=== PATIENT | male | born 1975 ===

== ENCOUNTER 2017-03-04 14:59 | Observation (INO) | payer OTHER ==
[2017-03-04 15:28] VITALS: TEMP 97.8; BMI 25.8
--- NOTE | 2017-03-04 16:28 | ED PDOC ---
Arrival/HPI - General Chief Complaint: Alcohol Ingestion Time Seen by Provider: 03/04/17 15:07 Historian: Patient - History of Present Illness Narrative History of Present Illness (Text): 03/04/17 16:00 Bear Hanley is a 42 year old male, whose past medical history includes ETOH abuse, who was brought into emergency department intoxicated. Patient admits to heavy alcohol use today. Patient denies suicidal ideation, homicidal ideation, physical symptoms, or any other complaints at this time. Time/Duration: Prior to Arrival Symptom Onset: Gradual Symptom Course: Unchanged Activities at Onset: Light Context: Home Past Medical History - Provider Review Nursing Documentation Reviewed: Yes - Past History Past History: No Previous - Infectious Disease Hx of Infectious Diseases: None - Tetanus Immunization Tetanus Immunization: Unknown - Past Medical History Past Medical History: No Previous - Cardiac Hx Hypertension: Yes - Psychiatric Hx Depression: No Hx Emotional Abuse: No Hx Physical Abuse: No Hx Substance Use: No - Past Surgical History Past Surgical History: No Previous - Anesthesia Hx Anesthesia: No - Suicidal Assessment Feels Threatened In Home Enviroment: No Family/Social History - Physician Review Nursing Documentation Reviewed: Yes Family/Social History: No Known Family HX Smoking Status: Unknown If Ever Smoked Hx Alcohol Use: Yes Hx Substance Use: No Hx Substance Use Treatment: No Allergies/Home Meds Allergies/Adverse Reactions: Allergies No Known Allergies Allergy (Verified 03/04/17 15:42) Home Medications: Home Meds Medication Instructions Recorded Confirmed No Known Home Med 02/10/13 03/04/17 Review of Systems - Physician Review All systems were reviewed & negative as marked: Yes - Review of Systems Constitutional: Other (Intoxicated) Eyes: absent: Vision Changes ENT: absent: Hearing Changes Respiratory: absent: SOB, Cough Cardiovascular: absent: Chest Pain Gastrointestinal: absent: Abdominal Pain Genitourinary Male: absent: Dysuria Musculoskeletal: absent: Arthralgias Skin: absent: Rash Neurological: absent: Headache Endocrine: absent: Diaphoresis Hemo/Lymphatic: absent: Adenopathy Psychiatric: absent: Suicidal Ideation Physical Exam Vital Signs Reviewed: Yes Vital Signs Temp Pulse Resp BP Pulse Ox 03/04/17 19:28 98 H 16 135/78 100 03/04/17 15:23 97.8 F 108 H 22 145/93 H 96 Temperature: Afebrile Blood Pressure: Hypertensive Pulse: Tachycardic (mild) Respiratory Rate: Normal Pain Distress: None - Systems Exam Head: Present: Atraumatic, Normocephalic Pupils: Present: PERRL Conjunctiva: Present: Normal Mouth: Present: Moist Mucous Membranes Pharnyx: Present: Normal. No: ERYTHEMA, EXUDATE Neck: Present: Normal Range of Motion Respiratory/Chest: Present: Clear to Auscultation, Good Air Exchange. No: Respiratory Distress, Accessory Muscle Use Cardiovascular: Present: Regular Rate and Rhythm, Normal S1, S2. No: Murmurs Abdomen: Present: Normal Bowel Sounds. No: Tenderness, Distention, Peritoneal Signs Back: Present: Normal Inspection Upper Extremity: Present: Normal Inspection. No: Cyanosis, Edema Lower Extremity: Present: Normal Inspection. No: Edema Neurological: Present: GCS=15, CN II-XII Intact, Speech Normal Skin: Present: Warm, Dry, Normal Color. No: Rashes Psychiatric: Present: Alert, Oriented x 3, Normal Insight, Normal Concentration Medical Decision Making ED Course and Treatment: 03/04/17 16:00 Impression: 42 year old male complaining of alcohol intoxication after admitting to heavy alcohol use today. Differential Diagnosis included but are not limited to: ETOH Plan: -- Reassess and disposition Prior Visits: Notes and results from previous visits were reviewed. Patient last seen in the ED on 08/27/15 for alcohol intoxication that night. Patient was discharged home. Progress Notes: 03/04/17 20:02 Patient is fully sober at this time with normal speech and gait and denies any SI or HI - will d/c. ED OBSERVATION Discharge: Yes Date of observation admission: 03/04/17 Time of observation admission: 16:00 - Observation admission statement Patient is being placed in observation because:: alcohol intoxication - Goals of Observation Goals of observation are:: await sobriety and reassess - Progress Note Progress Note: 03/04/17 17:54 Patient is more awake and sober but slightly unsteady. Will await further sobriety. 03/04/17 19:57 Patient is fully awake, alert, and oriented x 3 with normal speech and gait. Denies any SI or HI - ok for d/c. - Scribe Statement The provider has reviewed the documentation as recorded by the Stephen Hoskins Provider Scribe Attestation: All medical record entries made by the Scribe were at my direction and personally dictated by me. I have reviewed the chart and agree that the record accurately reflects my personal performance of the history, physical exam, medical decision making, and the department course for this patient. I have also personally directed, reviewed, and agree with the discharge instructions and disposition. Disposition/Present on Arrival - Present on Arrival Any Indicators Present on Arrival: No History of DVT/PE: No History of Uncontrolled Diabetes: No Urinary Catheter: No History of Decub. Ulcer: No History Surgical Site Infection Following: None - Disposition Have Diagnosis and Disposition been Completed?: Yes Diagnosis: Alcohol intoxication Disposition: HOME/ ROUTINE Disposition Time: 20:00 Patient Plan: Discharge Condition: GOOD Discharge Instructions (ExitCare): Alcohol Intoxication (ED), Abuse of Alcohol (ED) Additional Instructions: Avoid alcohol use. Drink plenty of fluids. Return to the emergency department if any new concerning symptoms. Referrals: at [facility] [place], [place] [Outside] - Follow up with primary Alcoholics Anonymous [Outside] - Follow up with primary
[2017-03-04 19:29] VITALS: BP 135/78; PULSE 98; RESP 16; O2SAT 100
== END 2017-03-04 20:05 | disposition home or self-care (01) ==
LOC: ED 14:59 → EROBSV 16:00 → ED 20:13
PROVIDERS: ADMIT Emergency Medicine; ATTEND Emergency Medicine
DX: F10.129 Alcohol abuse with intoxication, unspecified (principal)
CPT/HCPCS: 99283; G0378

== ENCOUNTER 2017-06-06 15:06 | Emergency (ER) | payer OTHER ==
[2017-06-06 15:06] VITALS: BMI 25.8
--- NOTE | 2017-06-06 15:36 | ED PDOC ---
Arrival/HPI - General Chief Complaint: Back Pain Time Seen by Provider: 06/06/17 15:20 Historian: Patient - History of Present Illness Narrative History of Present Illness (Text): 06/06/17 15:34 42yo male with no PMhx who present with complaint of lower back pain and right sided scrotal pain . Note that back pain started a month ago after a trauma and improved, and scrotal pain started 2weeks ago. No relieving or exacerbating factors. Denies dysuria, hematuria Past Medical History - Provider Review Nursing Documentation Reviewed: Yes - Past History Past History: No Previous - Infectious Disease Hx of Infectious Diseases: None - Tetanus Immunization Tetanus Immunization: Unknown - Past Medical History Past Medical History: No Previous - Cardiac Hx Hypertension: Yes - Psychiatric Hx Depression: No Hx Emotional Abuse: No Hx Physical Abuse: No Hx Substance Use: No - Past Surgical History Past Surgical History: No Previous - Surgical History Hx Appendectomy: Yes - Anesthesia Hx Anesthesia: No - Suicidal Assessment Feels Threatened In Home Enviroment: No Family/Social History - Physician Review Nursing Documentation Reviewed: Yes Family/Social History: Unknown Family HX Smoking Status: Unknown If Ever Smoked Hx Alcohol Use: Yes Frequency of alcohol use: Socially Hx Substance Use: No Hx Substance Use Treatment: No Allergies/Home Meds Allergies/Adverse Reactions: Allergies No Known Allergies Allergy (Verified 03/04/17 15:42) Review of Systems - Physician Review All systems were reviewed & negative as marked: Yes - Review of Systems Constitutional: Normal Eyes: Normal ENT: Normal Respiratory: Normal Cardiovascular: Normal Gastrointestinal: Normal Genitourinary Male: Other (Right testicular pain) Musculoskeletal: Back Pain Skin: Normal Neurological: Normal Endocrine: Normal Hemo/Lymphatic: Normal Psychiatric: Normal Physical Exam Vital Signs Reviewed: Yes Vital Signs Temp Pulse Resp BP Pulse Ox 06/06/17 17:26 98 F 85 16 152/88 H 100 06/06/17 15:58 90 18 163/119 H 97 06/06/17 15:13 98.4 F 90 16 163/119 H 98 Temperature: Afebrile Blood Pressure: Hypertensive Pulse: Regular Respiratory Rate: Normal Appearance: Positive for: Well-Appearing, Non-Toxic, Comfortable Pain Distress: None Mental Status: Positive for: Alert and Oriented X 3 - Systems Exam Head: Present: Atraumatic, Normocephalic Pupils: Present: PERRL Extroacular Muscles: Present: EOMI Conjunctiva: Present: Normal Mouth: Present: Moist Mucous Membranes Neck: Present: Normal Range of Motion Respiratory/Chest: Present: Clear to Auscultation, Good Air Exchange. No: Respiratory Distress, Accessory Muscle Use Cardiovascular: Present: Regular Rate and Rhythm, Normal S1, S2. No: Murmurs Abdomen: Present: Normal Bowel Sounds. No: Tenderness, Distention, Peritoneal Signs Genitourinary Male: Present: Other ([employer] Member by Samuel from the registration). No: Testicle Tenderness, Testicle Swelling Back: No: Midline Tenderness, Paraspinal Tenderness Upper Extremity: Present: Normal Inspection. No: Cyanosis, Edema Lower Extremity: Present: Normal Inspection. No: Edema Neurological: Present: GCS=15, CN II-XII Intact, Speech Normal Skin: Present: Warm, Dry, Normal Color. No: Rashes Psychiatric: Present: Alert, Oriented x 3, Normal Insight, Normal Concentration Medical Decision Making ED Course and Treatment: 06/06/17 20:30 LS xray - No acute fracture Testicular US 06/06/17 20:31 No evidence of testicular torsion. Incidental right sided 2mm extratesticular cyst of uncertain significance. Pt's pain has been ongoing for 2weeks. He was ambulatory with steady gait. He was refered to a Urologist. Rx of Ibuprofen was given. - Lab Interpretations Lab Results: Lab Results 06/06/17 16:45: Urine Color Yellow, Urine Appearance Clear, Urine pH 6.0, Ur Specific [place] <= 1.005, Urine Protein Negative, Urine Glucose (UA) Negative, Urine Ketones Negative, Urine Blood Negative, Urine Nitrate Negative, Urine Bilirubin Negative, Urine Urobilinogen 2.0 H, Ur Leukocyte Esterase Negative - RAD Interpretation Radiology Orders: 06/06/17 15:33 TESTES DUPLEX COMPLETE [US] Stat 06/06/17 15:34 LS SPINE WITH OBL > 18 YRS OLD [RAD] Stat - Medication Orders Current Medication Orders: Discontinued Medications Ibuprofen (Motrin Tab) 600 mg PO STAT STA Stop: 06/06/17 15:37 Last Admin: 06/06/17 15:48 Dose: 600 mg MAR Pain/Vitals Document 06/06/17 15:48 LAC (Rec: 06/06/17 15:48 LAC [id number]) Pain Reassessment Is This A Pain ReAssessment? No Sleep Is patient sleeping during reassessment? No Disposition/Present on Arrival - Present on Arrival Any Indicators Present on Arrival: No History of DVT/PE: No History of Uncontrolled Diabetes: No Urinary Catheter: No History of Decub. Ulcer: No History Surgical Site Infection Following: None - Disposition Have Diagnosis and Disposition been Completed?: Yes Diagnosis: Scrotal pain, Back pain Disposition: HOME/ ROUTINE Disposition Time: 17:10 Patient Plan: Discharge Condition: STABLE Discharge Instructions (ExitCare): Testicle Pain (ED), Back Pain (ED) Additional Instructions: Follow up with your doctor/Urologist Return to ED for any new or worsening symptoms Prescriptions: Ibuprofen [Motrin Tab] 600 mg PO Q6 #20 tab Referrals: Jamey Ling MD [Staff Provider] - Follow up with primary PCP,NO [Primary Care Provider] - Follow up with primary Forms: [employer] (Urdu)
--- NOTE | 2017-06-06 17:03 | US ---
HISTORY: right scrotal pain TECHNIQUE: Realtime sonography through the scrotum with color and doppler flow. COMPARISON: None Available. FINDINGS: RIGHT TESTICLE: Measures 3.4 x 1.5 x 2.7 cm. Normal echotexture and flow. RIGHT EPIDIDYMIS: Normal size and morphology. Incidental 2 mm extratesticular cyst anterior to lower pole of right testicle. . LEFT TESTICLE: Measures 3.7 x 1.5 x 2.0 cm. Normal echotexture and flow. LEFT EPIDIDYMIS: Normal size and morphology HYDROCELE: None. VARICOCELE: None. OTHER FINDINGS: None. IMPRESSION: No evidence of testicular torsion. Incidental right sided 2 mm extratesticular cysts of uncertain significance.
[2017-06-06 17:06] LABS: URINE APPEARANCE CLEAR (CLEAR); URINE BILIRUBIN NEGATIVE (NEGATIVE); URINE BLOOD NEGATIVE (NEGATIVE); URINE COLOR YELLOW (YELLOW); URINE GLUCOSE (UA) NEGATIVE (NEGATIVE); URINE KETONE NEGATIVE (NEGATIVE); URINE LEUKOCYTE ESTERASE NEGATIVE Leu/uL (NEGATIVE); URINE PROTEIN NEGATIVE mg/dL (<30 mg/dL)
[2017-06-06 17:27] VITALS: BP 152/88; PULSE 85; RESP 16; TEMP 98; O2SAT 100
--- NOTE | 2017-06-07 09:35 | RAD ---
PROCEDURE: Radiographs of the Lumbar Spine. HISTORY: back pain COMPARISON: No prior. FINDINGS: BONES: There is a mild reversal of the upper cervical curvature due to a E moderate to severe anterior wedge compression fracture of L2 as well as a mild to moderate anterior wedge compression fracture of L4. A minimal anterior wedge compression fracture of L1 is questioned. The ages of these fractures is indeterminate and can be better evaluated by MRI or nuclear bone scan of the lumbar spine. Grade 1 spondylolisthesis of L5 is appreciated anterior to S1 by a few mm. This appears be on the basis of facet joint degenerative arthropathy as spondylolysis is not identified grossly. Moderate disc height loss is appreciated at L3-4 and is mild throughout the remainder of the lumbar spine. Multilevel degenerative facet arthropathy noted. Multilevel degenerative spondylosis. DISC SPACES: As above. OTHER FINDINGS: None. IMPRESSION: Moderate to severe anterior wedge compression fracture bowel 2 and [id number] was retractor L4 is identified with minimal anterior wedge compression fracture of L1 in question. Age of these is of these fractures is indeterminate and MRI or nuclear bone scan can be performed for additional detailed evaluation Grade 1 spondylolisthesis L5-S1. Multilevel degenerative facet arthropathy. Multilevel degenerative spondylosis. Mild reversal of cervical curvature due to aforementioned fractures.
== END 2017-06-06 17:28 | disposition home or self-care (01) ==
LOC: ED 15:06
DX: N50.82 Scrotal pain (principal); M54.5 Low back pain; I10 Essential (primary) hypertension

== ENCOUNTER 2018-11-23 23:10 | Emergency (ER) | payer OTHER ==
--- NOTE | 2018-11-23 23:33 | ED PDOC ---
Arrival/HPI <Willam Luciano - Last Filed: 11/24/18 04:40> - General Historian: Patient, EMS EM Caveat: Intoxicated - History of Present Illness Narrative History of Present Illness (Text): 11/23/18 23:37 43 y/o male with PMH of alcohol abuse and HTN presents to the ED biba for evaluation of alcohol intoxication. Per EMS, pt was found sleeping on the sidewalk. (+) ETOH on breath. Pt alert but unwilling to answer questions. Has no physical complaints at this time. HPI and ROS very limited secondary to intoxicated state of patient. <Lisa Perez - Last Filed: 11/27/18 10:07> - General Chief Complaint: Alcohol Ingestion Time Seen by Provider: 11/23/18 23:12 Past Medical History - Provider Review Nursing Documentation Reviewed: Yes - Past History Past History: No Previous - Infectious Disease Hx of Infectious Diseases: None - Tetanus Immunization Tetanus Immunization: Unknown - Past Medical History Past Medical History: No Previous - Cardiac Hx Hypertension: Yes - Psychiatric Hx Depression: No Hx Emotional Abuse: No Hx Physical Abuse: No Hx Substance Use: No - Past Surgical History Past Surgical History: No Previous - Surgical History Hx Appendectomy: Yes - Anesthesia Hx Anesthesia: No - Suicidal Assessment Feels Threatened In Home Enviroment: No <Lisa Perez - Last Filed: 11/27/18 10:07> Family/Social History - Physician Review Nursing Documentation Reviewed: Yes Family/Social History: No Known Family HX Smoking Status: Unknown If Ever Smoked Hx Alcohol Use: Yes Hx Substance Use: No Hx Substance Use Treatment: No <Lisa Perez - Last Filed: 11/27/18 10:07> Allergies/Home Meds <Willam Luciano - Last Filed: 11/24/18 04:40> <Lisa Perez - Last Filed: 11/27/18 10:07> Allergies/Adverse Reactions: Allergies No Known Allergies Allergy (Verified 03/04/17 15:42) Review of Systems - Review of Systems Systems not reviewed;Unavailable: Intoxicated <Lisa Perez - Last Filed: 11/27/18 10:07> Physical Exam Vital Signs Temp Pulse Resp BP Pulse Ox 11/24/18 04:27 117 H 15 146/99 H 96 11/24/18 01:48 117 H 23 138/101 H 100 11/23/18 23:30 98.7 F 111 H 18 143/89 98 <AnkitaWillam - Last Filed: 11/24/18 04:40> Vital Signs Reviewed: Yes Temperature: Afebrile Blood Pressure: Hypertensive Pulse: Tachycardic Respiratory Rate: Normal Appearance: Positive for: Non-Toxic, Unkept, Uncomfortable Pain Distress: None Mental Status: Positive for: other (Intoxicated, responsive to voice) - Systems Exam Head: Present: Atraumatic, Normocephalic Pupils: Present: PERRL Extroacular Muscles: Present: EOMI Conjunctiva: Present: Normal Mouth: Present: Moist Mucous Membranes Neck: Present: Normal Range of Motion Respiratory/Chest: Present: Clear to Auscultation, Good Air Exchange. No: Respiratory Distress, Accessory Muscle Use Cardiovascular: Present: Normal S1, S2, Peripheal Pulses Present, Tachycardic Abdomen: Present: Normal Bowel Sounds. No: Tenderness, Distention, Peritoneal Signs, Rebound, Guarding Back: Present: Normal Inspection Upper Extremity: Present: Normal Inspection, Normal ROM, NORMAL PULSES, Neurovas cularly Intact, Capillary Refill < 2s. No: Cyanosis, Edema, Temperature Abnormalties Lower Extremity: Present: Normal Inspection, NORMAL PULSES, Normal ROM, Neurovascularly Intact, Capillary Refill < 2 s. No: Edema, Swelling, Temperature Abnormalties Skin: Present: Warm, Dry, Normal Color. No: Rashes Psychiatric: Present: Alert, Intoxicated <Lisa Perez - Last Filed: 11/27/18 10:07> Medical Decision Making - Lab Interpretations Lab Results: Troponin I < 0.01 ng/mL 11/24/18 00:18 Total Bilirubin 1.0 mg/dL (0.2-1.3) 11/24/18 00:18 AST 114 U/L (17-59) H 11/24/18 00:18 ALT 45 U/L (7-56) 11/24/18 00:18 Alkaline Phosphatase 150 U/L (38-126) H 11/24/18 00:18 Total Protein 8.7 g/dL (5.8-8.3) H 11/24/18 00:18 Albumin 4.6 g/dL (3.0-4.8) 11/24/18 00:18 Globulin 4.1 gm/dL 11/24/18 00:18 Albumin/Globulin Ratio 1.1 (1.1-1.8) 11/24/18 00:18 - RAD Interpretation Radiology Orders: 11/23/18 23:35 CERVICAL SPINE W/O CONTRAST [CT] Stat HEAD W/O CONTRAST [CT] Stat - Medication Orders Current Medication Orders: Discontinued Medications Sodium Chloride (Sodium Chloride 0.9%) 1,000 mls @ 999 mls/hr IV .Q1H1M STA Stop: 11/24/18 03:09 Last Admin: 11/24/18 02:27 Dose: 999 mls/hr eMAR Start Stop Document 11/24/18 02:27 EB (Rec: 11/24/18 02:27 [id number]) Intravenous Solution Start Date 11/24/18 Start Time 02:27 <Willam Luciano - Last Filed: 11/24/18 04:40> ED Course and Treatment: 23:40 Initial Plan: * CBC, CMP * Acetaminophen, tylenol, alcohol level * Troponin * Lipase * EKG * Head CT * Cervical Spine CT EKG shows sinus tachycardia at 111; Normal intervals; Normal axis; No STEMI, nonspecific ST/T wave changes 01:08 Bloodwork reviewed. Alcohol level 432. Mildly elevated LFTs, glucose 130. Platelets 94. Otherwise unremarkable. 01:55 CT Head and Cervical Spine negative for acute pathology 02:00 On re-eval, patient is more alert and able to ambulate. Patient care endorsed to Dr. Luciano pending sobriety, reassessment, and disp osition. Fluids ordered. - Lab Interpretations Lab Results: 11/24/18 00:18 11/24/18 00:18 Lab Results 11/24/18 00:18: Alcohol, Quantitative 432 H* 11/24/18 00:18: Salicylates < 1 L, Acetaminophen < 10.0 L 11/24/18 00:18: Sodium 139, Potassium 3.8, Chloride 103, Carbon Dioxide 23, Anion Gap 17, BUN 7, Creatinine 0.5 L, Est GFR ( Amer) > 60, Est GFR (Non-Af Amer) > 60, Random Glucose 130 H, Calcium 9.3, Total Bilirubin 1.0, AST 114 H, ALT 45, Alkaline Phosphatase 150 H, Troponin I < 0.01, Total Protein 8.7 H, Albumin 4.6, Globulin 4.1, Albumin/Globulin Ratio 1.1 11/24/18 00:18: WBC 5.1, RBC 4.90, Hgb 16.7, Hct 47.1, MCV 96.1, MCH 34.1, MCHC 35.5, RDW 12.4, Plt Count 94 L, MPV 10.7, Neut % (Auto) 66.5, Lymph % (Auto) 20.9 L, [place] % (Auto) 11.2 H, Eos % (Auto) 1.0 L, Baso % (Auto) 0.4, Lymph # (Auto) 1.1 L, [place] # (Auto) 0.6, Eos # (Auto) 0.1, Baso # (Auto) 0.02, Absolute Neuts (auto) 3.40 I have reviewed the lab results: Yes - RAD Interpretation Narrative RAD Interpretations (Text): 11/24/18 01:52 CT Head: FINDINGS: Normal size of the ventricles and extra-axial spaces for the patient's age. Normal white matter tracts of the supratentorial brain. Normal basal ganglia and thalami. Normal brainstem. Normal cerebellum. There is no demonstrated extra-axial, intraparenchymal, or intraventricular hemorrhage. There are no findings of an acute ischemic infarction. Normal calvarium. There is no demonstrated fracture. Normal soft tissue structures. Mild chronic mucosal inflammatory changes of the maxillary sinuses and ethmoid air cells. Normal remaining visualized paranasal sinuses. IMPRESSION: Normal unenhanced CT scan of the brain. Mild chronic mucosal inflammatory changes of the maxillary sinuses and ethmoid air cells. Electronically signed on Nov 24, 2018 1:38:53 AM EDT by: Steff Arnold M.D., Certified by ABR, MSK, Neuroradiology CT Cervical Spine: Findings: Moderate osteopenia of the bones. Moderate changes of diffuse idiopathic skeletal hyperostosis. Grade 1 anterolisthesis of C6 on C7. There are diffuse spondylotic changes. Findings are demonstrated by disc space narrowing, osteophyte formation and degenerative endplate changes. Facet joint arthropathy is noted. No fracture or dislocation is seen. No aggressive bone lesion is noted. Impression: Spondylosis. Multilevel facet joint arthropathy. No acute bone pathology. Electronically signed on Nov 24, 2018 1:43:54 AM EDT by: Steff Arnold M.D., Certified by ABR, MSK, Neuroradiology Margarine Maker: Radiologist - EKG Interpretation EKG Interpretation (Text): 11/24/18 01:18 Rate 111; Sinus tachycardia; Normal axis; Normal intervals; No STEMI or other signs of acute ischemia Interpreted by ED Physician: Yes Type: 12 lead EKG - Transfer of Care Patient signed out to Dr:: Ankita Other: Sobriety, Reassessment and Disposition <Lisa Perez - Last Filed: 11/27/18 10:07> Disposition/Present on Arrival - Disposition Have Diagnosis and Disposition been Completed?: Yes Disposition Time: 04:40 Patient Plan: Discharge <Willam Luciano - Last Filed: 11/24/18 04:40> - Present on Arrival Any Indicators Present on Arrival: No History of DVT/PE: No History of Uncontrolled Diabetes: No Urinary Catheter: No History Surgical Site Infection Following: None - Disposition Have Diagnosis and Disposition been Completed?: No Disposition Time: 02:00 <Lisa Perez - Last Filed: 11/27/18 10:07> - Disposition Diagnosis: Alcohol intoxication, Thrombocytopenia Disposition: HOME/ ROUTINE Condition: STABLE Discharge Instructions (ExitCare): Alcohol Abuse and Alcoholism (DC) Print Language: SYRIAC Additional Instructions: Please try to cut down on your drinking Please follow up in clinic Referrals: Chase Crawford MD [Primary Care Provider] - Follow up with primary Forms: [employer] (Estonian)
[2018-11-23 23:34] VITALS: BMI 28.3
[2018-11-23 23:58] VITALS: TEMP 98.7
[2018-11-24 00:38] LABS: BASO # 0.02 K/mm3 (0.0-2.0); BASO % 0.4 % (0.0-3.0); EOS # 0.1 (0.0-0.7); HEMOGLOBIN 16.7 g/dL (14.0-18.0); LYMPH # 1.1 (1.2-3.4); LYMPH % 20.9 % (22.0-35.0); MEAN CELL VOLUME 96.1 fl (80.0-105.0); MEAN CORPUSCULAR HEMOGLOBIN 34.1 pg (25.0-35.0); MEAN CORPUSCULAR HGB CONC 35.5 g/dl (31.0-37.0); MEAN PLATELET VOLUME 10.7 fl (7.0-11.0); MONO # 0.6 (0.1-0.6); MONO % 11.2 % (1.0-6.0); RBC 4.9 10^6/uL (3.5-6.1); RED CELL DISTRIBUTION WIDTH 12.4 % (11.5-14.5); WHITE BLOOD COUNT 5.1 10^3/uL (4.5-11.0)
[2018-11-24 00:40] LABS: ACETAMINOPHEN < 10.0 ug/ml (10.0-20.0); SALICYLATE < 1 mg/dL (2.0-20.0)
[2018-11-24 00:41] LABS: ALB/GLOB RATIO 1.1 (1.1-1.8); ALBUMIN 4.6 g/dL (3.0-4.8); BLOOD UREA NITROGEN 7 mg/dL (7-21); CALCIUM 9.3 mg/dL (8.4-10.5); GFR NON-AFRICAN AMERICAN > 60
[2018-11-24 00:52] LABS: TROPONIN I < 0.01 ng/mL
[2018-11-24 00:53] LABS: ALT/SGPT 45 U/L (7-56); AST/SGOT 114 U/L (17-59)
[2018-11-24] MEDS ORDERED: Sodium Chloride 0.9% 1,000 ML IV STA (02:09)
[2018-11-24 02:21] VITALS: PULSE 117
[2018-11-24 04:28] VITALS: BP 146/99; RESP 15; O2SAT 96
--- NOTE | 2018-11-24 08:21 | CT ---
Date of service: 11/24/2018 PROCEDURE: CT HEAD WITHOUT CONTRAST. HISTORY: headache COMPARISON: None available. TECHNIQUE: Axial computed tomography images were obtained through the head/brain without intravenous contrast. Radiation dose: Total exam DLP = 971.87 mGy-cm. This CT exam was performed using one or more of the following dose reduction techniques: Automated exposure control, adjustment of the mA and/or kV according to patient size, and/or use of iterative reconstruction technique. FINDINGS: HEMORRHAGE: No intracranial hemorrhage. BRAIN: No mass effect or edema. No atrophy or chronic microvascular ischemic changes. VENTRICLES: Unremarkable. No hydrocephalus. CALVARIUM: Unremarkable. PARANASAL SINUSES: Unremarkable as visualized. No significant inflammatory changes. MASTOID AIR CELLS: Unremarkable as visualized. No inflammatory changes. OTHER FINDINGS: The report concurs with the preliminary [facility] report IMPRESSION: No acute intracranial findings
--- NOTE | 2018-11-24 08:25 | CT ---
Date of service: 11/24/2018 PROCEDURE: CT Cervical Spine without contrast HISTORY: neck pain COMPARISON: None available. TECHNIQUE: Axial computed tomography images were obtained of the cervical spine without the use of intravenous contrast. Coronal and sagittal reformatted images were created and reviewed. Radiation dose: Total exam DLP = 514.5 mGy-cm. This CT exam was performed using one or more of the following dose reduction techniques: Automated exposure control, adjustment of the mA and/or kV according to patient size, and/or use of iterative reconstruction technique. FINDINGS: VERTEBRAE: No fracture. Normal alignment. No destructive bony lesion. DISCS/SPINAL CANAL/NEURAL FORAMINA: Multilevel disc degeneration. No significant foraminal or central stenosis. PARASPINAL SOFT TISSUES: Unremarkable. OTHER FINDINGS: The report concurs with the preliminary [facility] report IMPRESSION: No acute fracture
--- NOTE | 2018-11-24 20:48 | CARD ---
APPROVED REPORT Date of service: 11/23/2018 EKG Measurement Heart [id number] <Conclusion> Sinus tachycardia Moderate voltage criteria for LVH, may be normal variant Nonspecific T wave abnormality Abnormal ECG
== END 2018-11-24 04:57 | disposition home or self-care (01) ==
LOC: ED 23:10
DX: F10.129 Alcohol abuse with intoxication, unspecified (principal); Y90.8 Blood alcohol level of 240 mg/100 ml or more; D69.6 Thrombocytopenia, unspecified; I10 Essential (primary) hypertension
CPT/HCPCS: 70450; 72125; 80053; 80320; 80329; 84484; 85025; 93005; 99283; J7030